=== PATIENT | male | born 1995 | race Caucasian/White ===

== ENCOUNTER 2016-10-18 13:15 | Emergency (ER) | payer OTHER ==
[~2016-10-18] VITALS: Ht 177.8 cm; Wt 72.7 kg
[2016-10-18 13:25] VITALS: BP 149/98; PULSE 119; RESP 16; O2SAT 97
[2016-10-18 13:59] LABS: BASOPHILS % (AUTO) 0.3 % (0-3); EOSINOPHILS % (AUTO) 2.1 % (0-5); MONOCYTES % (AUTO) 7.6 % (4-12); Mean Corpuscular Hemoglobin 25.8 pg (27.0-35.0); Mean Corpuscular Volume 78.8 fL (81-100); NEUTROPHILS % (AUTO) 81.1 % (40-74); Platelet Count 286 bil/L (150-400)
[2016-10-18 14:28] LABS: Magnesium 2.3 mg/dL (1.6-2.6)
--- NOTE | 2016-10-18 15:25 | ED.REPORT ---
HPI-Abd Pain M Under 40 Date of Service October 18, 2016 ED Provider: Demarcus Brito MD Patient is a 21 year old male with a hx of Crohn's disease who presents to the ED complaining of diffuse abdominal pain onset 6 weeks ago that has gotten worse in the last 2 weeks. Associated symptoms include diarrhea (once an hour), hematochezia, chills, fever, nausea, decreased appetite, and joint pain. He denies vomiting, dysuria, rash, or any other symptoms. He is not currently on medication for his Crohn's. It has been 3 years since his last flare up. He was at [facility] one week ago for similar symptoms. He received 4 days of prednisone which relieved his symptoms. He would like a referral to a production support developer. Nursing Notes Stated Complaint: POSS CROHNS FLARE UP Chief Complaint: Male Abdominal Pain Nursing Notes Reviewed: Yes Allergies: Coded Allergies: NSAIDS (Non-Steroidal Anti-Inflamma (Verified Allergy, Severe, exacerbates chrons, 10/18/16) infliximab (Verified Allergy, Severe, serum sickness , hives, 10/18/16) Scheduled Prednisone (PredniSONE) 20 Mg Tablet 40 MG PO DAILY General Time Seen by MD: 15:24 Chief Complaint Abdominal pain Hx Obtained From: Patient Arrived By: Walk-in Sudden in Onset?: Yes Onset Occurred: More than a week ago... (1 month) Symptom Duration: Since onset Progression since Onset: Gradually worsening Recent Healthcare: No recent doctor visit Similar Sx Previous: Yes Past Medical History Past Medical History Notes: no PCP Past Medical History Crohn's disease Past Surgical History Denies Smoking History Never Smoker Social History Alcohol Use: Denies alcohol use Drug Use: THC Other Social History: Good social support Ambulatory Status Independent Review of Systems Review of Systems Note: +decreased appetite Constitutional: Reports: Chills, Fever GI: Reports: Abdominal pain, Diarrhea, Hematochezia, Nausea, Denies: Vomiting Male: Denies Dysuria Musculoskeletal: Reports: Joint pain Complete sys rev & neg: except as marked. Skin: Denies Rash Physical Exam Initial Vital Signs Vital Signs (First) Date Time Temp Pulse Resp B/P Pulse Ox O2 Delivery O2 Flow Rate FiO2 10/18/16 13:25 36.2 119 16 149/98 97 Room Air Initial VS: Reviewed Head / Eyes: Atraumatic, Normocephalic Neck: Full range of motion Skin: Warm, Dry Neurologic: Alert, Oriented, Nonfocal Psychiatric: Mood/affect normal, Behavior normal, Normal thought content General/Constitutional: Awake, Alert, Well developed Distress / Hydration: Positive: Dehydration mild Respiratory / Chest: Breath sounds NL, Breath sounds = bilat, No respiratory distress Cardiovascular: Heart rate NL, Regular rhythm, Heart sounds NL, No gallop, No murmurs, No rubs Abdomen: Soft, No guarding, No rebound Mild lower abdominal tenderness Back: Atraumatic, Inspection NL Interpretation & Diagnostics Lab Results Interpretation Result Diagram: 10/18/16 1350 10/18/16 1350 Test 10/18/16 13:50 White Blood Count 14.9th/mm3 (3.8-10.1) Red Blood Count 5.28mil/mm3 (4.40-5.80) Hemoglobin 13.6g/dL (13.8-17.2) Hematocrit 41.6% (41.0-50.0) Mean Corpuscular Volume 78.8fL (81-100) Mean Corpuscular Hemoglobin 25.8pg (27.0-35.0) Mean Corpuscular Hemoglobin Concent 32.7% (32.0-37.0) Red Cell Distribution Width 12.3% (12.3-15.4) Platelet Count 286bil/L (150-400) Neutrophils (%) (Auto) 81.1% (40-74) Lymphocytes (%) (Auto) 8.5% (14-46) Monocytes (%) (Auto) 7.6% (4-12) Eosinophils (%) (Auto) 2.1% (0-5) Basophils (%) (Auto) 0.3% (0-3) Sodium Level 139mEq/L (134-144) Potassium Level 4.4mEq/L (3.5-5.2) Chloride Level 96mEq/L (97-108) Carbon Dioxide Level 27mmol/L (18-29) Blood Urea Nitrogen 10mg/dL (6-20) Creatinine 0.77mg/dL (0.76-1.27) Estimat Glomerular Filtration Rate 134mL/min (>59) Glucose Level 123mg/dL (60-99) Calcium Level 9.7mg/dL (8.5-10.1) Magnesium Level 2.3mg/dL (1.6-2.6) Total Bilirubin 0.3mg/dL (0.0-1.2) Aspartate Amino Transf (AST/SGOT) 17U/L (0-50) Alanine Aminotransferase (ALT/SGPT) 6U/L (0-44) Alkaline Phosphatase 84U/L (25-150) Total Protein 7.1g/dL (6.4-8.4) Albumin 4.0g/dL (3.4-5.0) Lipase 18U/L (13-60) Hold Hayes Top Tube Received (Received) Re-Eval/Medical Decision Re-Evaluation/Progress : Time of Eval: 15:39 )( Re-Eval Abdomen: Soft Re-Evaluation/Progress Note: Rechecked patient. Discussed plan for GI follow up. Discussed plan for discharge. Patient understands and agrees with plan. All questions addressed at this time. Consultation : Referral / Consult Name: Omar Nuñez MD Call Returned at: 15:36 Night Guard: Will see in office, Agrees with eval, Agrees with plan Note: Discussed patient case with GI. Will see pt in office. DO Stool PCR and give pt steroids. Counseled Regarding: Diagnosis, Lab results, Need for follow-up, When/why to return to ED Patient Discharge & Departure Primary Impression: Crohns disease Gastrointestinal tract location: large intestine Digestive disease complication type: with rectal bleeding Qualified Code: K50.111 - Crohn's disease of large intestine with rectal bleeding Additional Impressions: Generalized abdominal pain Hematochezia Disposition: Home Discharge Condition All VS Reviewed: Yes Condition: Improved Patient Instructions: Acute Abdominal Pain (ED) Additional Instructions: Thank you for entrusting us with your care. Drink clear fluids and eat a bland diet. Progress diet as tolerated. Prednisone 40 mg daily until seen by gastroenterology. Follow up with Dr. Nuñez on 10/25/16 at 10:55 am. Return to the emergency department if you experience new or worsening symptoms. Referrals: Omar Nuñez MD Scribe Attestation Portions of this note were transcribed by Edy Guzman. I, Dr. Brito personally performed the history, physical exam and medical decision-making; I reviewed and confirmed the accuracy of the information in the transcribed note. Signed by: Edy Guzman 10/18/16, 5194 copies to: Omar Nuñez MD, Kirk H MD October 18, 2016 15:25 EDY GUZMAN October 18, 2016 15:32
[2016-10-18] MEDS ORDERED: MethylprednisoLONE Sodium Succinate 62.5 mg/mL 2 mL Inj IVPUSH ONE (15:45)
[2016-10-18] MEDS ORDERED: PRE20 PO (15:47)
[2016-10-18 15:57] VITALS: BP 111/48; PULSE 92; O2SAT 98
[2016-10-18 16:19] VITALS: BP 111/48; PULSE 92; RESP 16; O2SAT 98
== END 2016-10-18 16:20 | disposition home or self-care (01) ==
LOC: SED 13:15
DX: K50.111 Crohn's disease of large intestine with rectal bleeding (principal); R10.84 Generalized abdominal pain; K92.1 Melena; Z88.8 Allergy status to other drugs, medicaments and biological substances
CPT/HCPCS: 36415; 80053; 83690; 83735; 85025; 87507; 96361; 96374; 99284; J2930

== ENCOUNTER 2016-11-18 08:36 | Day surgery (SDC) | payer OTHER ==
[~2016-11-18] VITALS: Ht 177.8 cm; Wt 83.9 kg
[~2016-11-18 08:36] MED LIST: PRE20 PO
[2016-11-18 09:09] VITALS: BP 130/82; PULSE 68; RESP 16; O2SAT 100
[2016-11-18] MEDS ORDERED: RNT300T PO (09:15)
[2016-11-18] MEDS ORDERED: 0.9% Sodium Chloride 1,000 ML IV PRN (09:59)
[2016-11-18] MEDS ORDERED: Sodium Chloride LOK Flush 10 mL Syringe IV PRN (10:00)
[2016-11-18] MEDS ORDERED: fentaNYL-PF 50 mCg/mL 2 mL Inj IVPUSH PRN (10:00)
[2016-11-18 10:30] VITALS: BP 140/87; PULSE 66; RESP 16; O2SAT 100
[2016-11-18 10:40] VITALS: BP 133/77; PULSE 70; RESP 16; O2SAT 99
--- NOTE | 2016-11-18 12:14 | ENDO ---
[address] [address] ENDOSCOPY PROCEDURE PATIENT: THALIA MONTOYA : 1995 MR#: [id number] ADMIT: 11/18/2016 JOB ID: [id number] DATE: 11/18/2016 PROCEDURE: Esophagogastroduodenoscopy (EGD). INDICATION: Odynophagia in a patient with a history of Crohn disease who has had a history of esophageal ulcers in the past thought to be secondary to Crohn disease. Patient is currently on 30 mg of prednisone daily. Patient has not been under the care of a green chain marker for some time and aside from prednisone has not been on any other medications for his Crohn disease. The patient's ASA classification is two. Mallampati score is two. INSTRUMENT USED: GIF H 180 J. PROCEDURE DETAILS: After informed consent was obtained, the patient was brought into the GI suite, where he was placed on oxygen via nasal cannula and monitored with continuous pulse oximeter, telemetry, and blood pressure monitoring. A time-out was performed, then he was placed in the left lateral decubitus position and medications were administered for sedation. A bite block was placed. The standard esophagogastroduodenoscopy scope was then inserted through the bite block and advanced under direct visualization to the second portion of the duodenum without difficulty. FINDINGS: 1. Normal appearing duodenal bulb, first and second portion. Multiple random biopsies were obtained. 2. Normal-appearing pylorus, antrum, and gastric body. 3. Retroflexed views in the gastric body revealed a normal-appearing cardia and fundus. 4. Multiple random biopsies were obtained throughout the antrum and body of the stomach. 5. The GE junction was at approximately 40 cm. The EGD scope was then withdrawn into the proximal esophagus. At 32 cm there was a clean-based punched-out ulcer that was oval in shape. There was also an ulcer at 30 cm which was slightly smaller, which measured approximately 8 mm. At 23 cm there was a large punched-out ulcer with a clean base that measured approximately 2 cm in length and oval in shape. Multiple biopsies were obtained from the ulcer margins. IMPRESSION: Esophageal ulcers. Possibly a manifestation of his Crohn disease; however, will await biopsy results to rule out any viral etiology for his ulcers. I have asked him to continue his prednisone. We will add sucralfate to his antacid regimen and have asked him to start omeprazole. Biopsies were requested to be read by the pathologist stat. Pending biopsy results further plans to be outlined. COMPLICATIONS: None. ESTIMATED BLOOD LOSS: Less than 5 mL.
--- NOTE | 2016-11-23 11:21 | PATH ---
SURGICAL PATHOLOGY Attending Physician:Berto Mcclure CASE STATUS: Signed Out PATIENT NAME: THALIA MONTOYA PID: [id number] : 1995 DATE COLLECTED:11/18/2016 22:01 SPECIMEN: 1: Duodenum, Biopsy 2: Gastric, Biopsy 3: Esophagus, Biopsy CLINICAL HISTORY: PATIENT WITH HISTORY OF ESOPHAGEAL CROHN'S, PATIENT ON IMMUNOSUPPRESSED MEDS PREDNISONE, RULE OUT VIRAL ETIOLOGY. 1). DUODENAL BIOPSY 2). GASTRIC BIOPSY, RULE OUT H.PYLORI 3). ESOPHAGEAL ULCER AT 32, 23 FINAL DIAGNOSIS: 1.DUODENAL BIOPSY: FRAGMENTS OF NORMAL-APPEARING SMALL BOWEL MUCOSA. Normal delicate mucosal villi present. Negative for significant inflammation, dysplasia and malignancy. 2.GASTRIC BIOPSY: MILD CHRONIC GASTRITIS INVOLVING ANTRAL AND FUNDIC MUCOSA. Negative for evidence of Helicobacter on H&E stain. Negative for intestinal metaplasia. Negative for dysplasia and malignancy. 3.ESOPHAGEAL ULCER AT 32 AND 23 CM: SQUAMOUS MUCOSA WITH LARGE AREAS OF NECROSIS CONSISTENT WITH ULCERATION WITH LARGE REACTIVE ENDOTHELIAL CELLS PRESENT WITHIN THE ULCER BED. Negative for fungi by PASD stain. Negative for epithelial cells within the inflamed ulcer tissue by immunohistochemistry (negative for CHATA). Negative for CMV by immunohistochemistry. ICD10 K22.10 NOTE: Within the esophageal ulcer in part 3 there are large atypical cells which by immunohistochemistry have proved to be of endothelial origin and are considered reactive changes. Because of the patient' s history, anti-CMV antibodies were also applied and are totally negative. There is no evidence of malignancy. GROSS DESCRIPTION: Received are three formalin-filled containers, each labeled with the patient's name. 1. Received in formalin, labeled with the patient's name and "duodenal biopsy" are multiple fragments of horn soft tissue ranging in size from 0.1 x 0.1 x 0.1 cm to 0.2 x 0.1 x 0.1 cm. All fragments are totally submitted in cassette 1A. 2. Received in formalin, labeled with the patient's name and "gastric biopsy" are three fragments of horn soft tissue ranging in size from less than 0.1 by less than 0.1 by less than 0.1 cm to 0.1 x 0.1 x 0.1 cm. All fragments are totally submitted in 2A. 3. Received in formalin, labeled with the patient's name and "esophageal ulcer at 32" are four fragments of horn soft tissue ranging in size from 0.1 x 0.1 x 0.1 cm to 0.2 x 0.1 x 0.1 cm. All fragments are totally submitted in cassette 3A. ([id number]) MICRO DESCRIPTION: See diagnosis. This test was developed and its performance characteristics determined by [facility]. It has not been cleared or approved by the U. S. Food and Drug Administration. The FDA has determined that such clearance or approval is not necessary. This test is used for clinical purposes. It should not be regarded as investigational or for research. ICD-9 CODES: CPT CODES: 1: 85191 2: 79017 3: 06500, 59975, 27788, 66418, 08012 Electronically Signed Out Jude Garduno MD [facility] [address], [place] [address] Technical component performed at [facility], [address], [place], [address]
== END 2016-11-18 23:59 | disposition home or self-care (01) ==
LOC: END 08:36
PROVIDERS: ATTEND Internal Medicine Gastroenterology
DX: K29.50 Unspecified chronic gastritis without bleeding (principal); K22.10 Ulcer of esophagus without bleeding; K50.919 Crohn's disease, unspecified, with unspecified complications; R63.4 Abnormal weight loss; F12.90 Cannabis use, unspecified, uncomplicated; Z68.25 Body mass index [BMI] 25.0-25.9, adult
CPT/HCPCS: 43239; G0500; J2250; J3010; J7030

== ENCOUNTER 2016-12-16 11:58 | Day surgery (SDC) | payer OTHER ==
[~2016-12-16] VITALS: Ht 177.8 cm; Wt 83.9 kg
[~2016-12-16 11:58] MED LIST changes: +0.9% Sodium Chloride 1,000 ML IV SCH; +RNT300T PO; +Sodium Chloride LOK Flush 10 mL Syringe IV PRN; +fentaNYL-PF 50 mCg/mL 2 mL Inj IVPUSH PRN
[2016-12-16] MEDS ORDERED: OMEP20CA11 PO (12:25)
[2016-12-16 12:31] VITALS: BP 126/85; PULSE 87; O2SAT 97
[2016-12-16 14:11] VITALS: BP 130/76; PULSE 79; RESP 16; O2SAT 99
[2016-12-16 14:21] VITALS: BP 120/64; PULSE 81; RESP 16; O2SAT 98
--- NOTE | 2016-12-16 14:34 | ENDO ---
[address] [address] ENDOSCOPY PROCEDURE PATIENT: THALIA MONTOYA : 1995 MR#: [id number] ADMIT: 12/16/2016 JOB ID: [id number] DATE: PROCEDURE: Colonoscopy. INDICATION: Patient with a history of Crohn disease. The patient's ASA classification is 2. Mallampati score is 2. MEDICATIONS: 1. Versed 10 mg. 2. Fentanyl 100 mcg. INSTRUMENT USED: PCF H 180 AL. PREPARATION QUALITY: Was fair. PROCEDURE DETAILS: After informed consent was obtained, the patient was brought into the GI suite, where he was placed on oxygen via nasal cannula and monitored with continuous pulse oximeter, telemetry and blood pressure monitoring. A time-out was performed. Then, he was placed in the left lateral decubitus position and medications were administered for sedation. Digital rectal examination was performed, which was unremarkable. The colonoscope was then inserted into the rectum and advanced under direct visualization to the terminal ileum which was identified by the presence of the ileocecal valve and villous appearing mucosa of the terminal ileum. Once the terminal ileum was reached, the colonoscope was withdrawn back to the rectum as the mucosa and lumen were examined. In the rectum, retroflexion was performed. Following retroflexion, remaining air in the rectum was suctioned, and the procedure was completed. FINDINGS: 1. Normal appearing terminal ileum. Multiple random biopsies were obtained. 2. There were scattered deep excavated ulcers scattered throughout the ascending, transverse and descending colon. In between the ulcers, mucosa appeared normal. Multiple random biopsies were obtained throughout the entire colon. 3. The rectum appeared normal. Multiple random biopsies were obtained. 4. Retroflexed views in the rectum are unremarkable. IMPRESSION: Large excavated ulcers scattered throughout the colon. IMPRESSION: Crohn colitis. RECOMMENDATIONS: Will plan to start Humira as the patient has a history of having had adverse reaction to Remicade. COMPLICATIONS: None. ESTIMATED BLOOD LOSS: Less than 5 mL.
--- NOTE | 2016-12-20 19:54 | PATH ---
SURGICAL PATHOLOGY Attending Physician:Berto Mcclure CASE STATUS: Signed Out PATIENT NAME: THALIA MONTOYA PID: [id number] : 1995 DATE COLLECTED:12/16/2016 00:00 SPECIMEN: 1: Ileum, Biopsy 2: Colon, Biopsy 3: Colon, Biopsy 4: Colon, Biopsy 5: Rectum, Biopsy CLINICAL HISTORY: 1). TERMINAL ILEUM BIOPSIES 2). RIGHT COLON BIOPSIES 3). TRANSVERSE COLON BIOPSIES 4). LEFT COLON BIOPSIES 5). RECTAL BIOPSY FINAL DIAGNOSIS: 1.TERMINAL ILEUM, BIOPSIES: PORTIONS OF SMALL BOWEL MUCOSA WITH NO DIAGNOSTIC ABNORMALITY. Negative for active inflammation, dysplasia, and malignancy. 2.RIGHT COLON, BIOPSIES: ACTIVE INFLAMMATION (PLEASE SEE COMMENT). 3.TRANSVERSE COLON, BIOPSIES: CHRONIC ACTIVE COLITIS WITH ULCERATION. NO DYSPLASIA IDENTIFIED. 4.LEFT COLON, BIOPSIES: DETACHED FRAGMENTS (X3) OF INFLAMED GRANULATION TISSUE. SUPERFICIAL PORTIONS OF COLORECTAL MUCOSA WITH NO DIAGNOSTIC ABNORMALITY. 5.RECTAL BIOPSY: SUPERFICIAL PORTIONS OF COLORECTAL MUCOSA WITH PROMINENT LYMPHOID AGGREGATES AND NO DIAGNOSTIC ABNORMALITY. ICD10 K52.9 NOTE: 2. Sections demonstrate superficial portions of colorectal mucosa with crypt abscesses and increased lymphocytes, plasma cells, and neutrophils within the lamina propria. No definite crypt architectural distortion is identified. No regions of dysplasia or granulomas are identified. 3. Sections demonstrate superficial portions of colorectal mucosa with crypt architectural distortion, cryptitis, and crypt abscesses. There are fragments of fibrinopurulent exudate, consistent with ulcer, as well as fragments of inflamed granulation tissue. The lamina propria contains increased lymphocytes, plasma cells, and neutrophils. No regions of dysplasia or granulomas are identified. These findings are consistent with inflammatory bowel disease, in the appropriate clinical context. GROSS DESCRIPTION: The specimen is received in five formalin filled containers labeled with the patient's name. 1). The specimen is labeled "terminal ileum" and consists of a 0.4 x 0.2 x 0.2 CM portion of tissue which is entirely submitted in cassette 1A. 2). The specimen is labeled "right colon" and consists of 2 portions of tissue which aggregate to 0.3 x 0.3 x 0.2 CM. The specimen is entirely submitted in cassettes 2A. 3). The specimen is labeled "transverse colon" and consists of 5 portions of tissue which aggregate to 0.4 x 0.4 x 0.2 CM. The specimen is entirely submitted in cassette 3A. 4). The specimen is labeled "left colon" and consists of 5 portions of tissue which aggregate to 0.3 x 0.3 x 0.2 CM. The specimen is entirely submitted in cassette 4A. 5). The specimen is labeled "rectum and consists of 2 portions of tissue which aggregate to 0.3 x 0.2 x 0.2 CM. The specimen is entirely submitted in cassette 5A. 12/17/2016DC MICRO DESCRIPTION: See diagnosis. ICD-9 CODES: CPT CODES: 1: 75092 2: 27069 3: 77243 4: 50519 5: 54161 Electronically Signed Out Denisa Claros MD [facility] [address], [place] [address] Technical component performed at [facility], [facility] [address], [place], [address]
== END 2016-12-16 23:59 | disposition home or self-care (01) ==
LOC: END 11:58
PROVIDERS: ATTEND Internal Medicine Gastroenterology
DX: K51.90 Ulcerative colitis, unspecified, without complications (principal)
CPT/HCPCS: 45380; 99153; G0500; J2250; J3010; J7030